=== PATIENT | male | born 1965 | race Two or more races ===

== ENCOUNTER 2019-04-13 21:47 | Emergency (ER) | payer OTHER ==
[~2019-04-13] VITALS: Ht 170.2 cm; Wt 77.1 kg
== END 2019-04-13 22:53 | disposition left against medical advice (07) ==
LOC: ED 21:47
DX: Z53.21 Procedure and treatment not carried out due to patient leaving prior to being seen by health care provider (principal)

== ENCOUNTER 2019-10-22 17:08 | Emergency (ER) | payer OTHER ==
[~2019-10-22] VITALS: Ht 170.2 cm; Wt 77.1 kg
--- OUTSIDE RECORDS SUMMARY | 2019-10-22 17:10 | XMS ---
PreManage Notification: TORO MENESES Security Judge'S Clerk Events 2 event(s) in the past 18 months Most recent security events: Elopement at [facility] 04/13/2019 21:48 - Other Details: PATIENT LWBS. Elopement at [facility] 04/13/2019 21:48 - Other Details: PATIENT LWBS. IRIS CREATED CRITERIA MET - Group Notification CARE PROVIDERS There are no care providers on record at this time. Rinku has no Care Guidelines for this patient. E.D. VISIT COUNT (12 MO.) 2 [facility]. TOTAL 2 NOTE: Visits indicate total known visits. ED/UCC VISIT TRACKING (12 MO.) 10/22/2019 17:08 [facility] [place] TYPE: Emergency COMPLAINT: - BACK PAIN 04/13/2019 21:48 [facility] [place] TYPE: Emergency COMPLAINT: - LT FOOT LACERATION - LEFT WITHOUT BEING SEEN DIAGNOSES: - Procedure and treatment not carried out due to patient leavin INPATIENT VISIT TRACKING (12 MO.) No inpatient visits to display in this time frame [id number]
[2019-10-22] MEDS ORDERED: LISINOPRIL20 MG PO (18:27)
[2019-10-22] MEDS ORDERED: VALIUM10 MG PO (20:06)
== END 2019-10-22 20:20 | disposition home or self-care (01) ==
LOC: ED 17:08
DX: S39.012A Strain of muscle, fascia and tendon of lower back, initial encounter (principal); M54.42 Lumbago with sciatica, left side; I10 Essential (primary) hypertension; F17.200 Nicotine dependence, unspecified, uncomplicated; Z79.899 Other long term (current) drug therapy; X50.0XXA Overexertion from strenuous movement or load, initial encounter
CPT/HCPCS: 96372; 99283; J3360

== ENCOUNTER 2021-03-11 14:03 | Inpatient (IN) | payer OTHER ==
[~2021-03-11] VITALS: Ht 170.2 cm; Wt 64.5 kg
[~2021-03-11 14:03] MED LIST: LISINOPRIL20 MG PO; VALIUM10 MG PO
--- OUTSIDE RECORDS SUMMARY | 2021-03-11 14:10 | XMS ---
PreManage Notification: TORO MENESES Security Gastroenterology Nurse Practitioner Events No recent Security Events currently on file CRITERIA MET - Group Notification CARE PROVIDERS SHANDA CORTEZ [facility] 10/24/2019-Current PHONE: Unknown Rinku has no Care Guidelines for this patient. [place] VISIT COUNT (12 MO.) 1 [facility] TOTAL 1 NOTE: Visits indicate total known visits. ED/UCC VISIT TRACKING (12 MO.) 03/11/2021 14:03 [facility] [place] TYPE: Emergency COMPLAINT: - POSS STROKE INPATIENT VISIT TRACKING (12 MO.) No inpatient visits to display in this time frame [id number]
--- NOTE | 2021-03-11 17:20 | NUR ---
REPORT RECEIVED FROM TAJ BLACK. AWAITING PTS ARRIVAL TO UNIT.
--- NOTE | 2021-03-11 17:45 | NUR ---
PT ARRIVED FROM ER. PT TRANSFERED SELF TO BED WITH STAND BY ASSIST. PT DENIES PAIN AND NAUSEA. PT DRESSED IN GOWN, REMOVES HIS OWN PANTS. SCRATCHES NOTED OVER PTS ARMS, LEGS AND UPPER CHEST. PT REPOTS "I GET ITCHY AND SCRATCH IT SOMETIMES" SAYING THIS IS WHAT HAS CAUSED THESE SCRATCH CROOK. PT RPEORTS ITCHING STARTED "A FEW MONTHS AGO." PT DENIES FEELINGS IF ITCHYNESS AT THIS TIME. PT DENIES FEELINGS OF ITCHING AT THIS TIME. PT DENIES NAUSEA. REPORTS MILD "FEELING SHAKY." NO TREMORS SEEN, PT REPORTS HE CAN FEEL THEM. PT ALERT AND ORIENTED AND INTERACTING APPROPRIATLY. PT REPORTS MILD ANXIETY "WITH ALL THIS." PT DENIES HEADACHES. CIWA SCORE OF 3. LUNG SOUNDS CLEAR. HEART TONES REGULAR. PT DENIES FEELINS OF CONSTIPATION REPORTING LAST BOWEL MOVEMENT WAS YESTERDAY. PT CALLS HIS TO UPDATE HER ON PLAN OF CARE AND HOSPITAL STAY. MEDICATIONS GIVEN, IV FLUIDS STARTED. PT WATCHING TV. NO ADDITIONAL REQUESTS OR COMPLAINTS. CALL LIGHT WITHIN REACH. BED RAILS UP.
--- NOTE | 2021-03-11 18:32 | NUR ---
THIS RN TO ROOM TO CHECK ON PT. PT RESTING IN BED WATCHING TV. APPLE JUICE PROVIDED PER PT REQUEST. VITAL SIGNS REAMIN STABLE. PT CONTINUES TO DENY FEELINTS OF [place], ITCHING, HEADACHES. ENDORSES MINOR "SHAKYNESS" AND ANXIETY. NO ADDITIONAL REQUESTS OR COMPLAINTS AT THIS TIME. CALL LIGHT WITHIN REACH. BED RAILS UP.
--- NOTE | 2021-03-11 18:53 | NUR ---
PTS CELL PHONE DELIVERED TO ROOM. PT REMAINS ALERT AND ORIENTED. DENIES NAUSE, HEADACHE, OR INCREASE IN TREMORS OR ANXIETY. PT NOTED TO HAVE VOIDED 650 OF CLEAR YELLOW URINE INTO URINAL. PT DNEIES ADDITIONAL REQUESTS OR COMPLAINTS AT THIS TIME. CALL LIGHT WITHIN REACH. BED RAILS UP.
--- NOTE | 2021-03-11 20:17 | NUR ---
REPORT RECEIVED FROM NANCY VANG. IN TO CHECK ON PT, PT IS RESTING IN BED. ASSESSMENT DONE. PT DENIES NEEDS/PAIN. DISCUSSED ETOH WITHDRAWAL AND S/SX WITH HIM AND PLAN OF CARE FOR THE NIGHT. REQUESTS A SNACK. CALL LIGHT AND URINAL IN REACH AND HE STATES HE WILL NOT GET UP ALONE.
--- NOTE | 2021-03-11 22:08 | NUR ---
IN TO CHECK ON PT, HE AWAKENS AND HAS URGENT NEED TO USE BR, UP TO BR TO VOID AND THEN BACK TO BED. SLIGHTLY IMPULSIVE BUT ONCE BACK IN BED HE IS CALM AND GOES BACK TO SLEEP. BED ALARM ON.
--- NOTE | 2021-03-12 02:09 | NUR ---
IN TO GIVE SCHEDULED ATIVAN, PT AWAKENS EASILY, DENIES NEEDS. BED ALARM ON AND CALL LIGHT IN REACH. HR 70'S.
--- NOTE | 2021-03-12 03:17 | NUR ---
FLORAL ASSOCIATE REPORTS THAT PT CALLED TO STATE THAT HE HAD SPILLED HIS URINAL IN BED, BED CHANGE DONE, BED ALARM ON.
--- NOTE | 2021-03-12 05:00 | NUR ---
IN TO HELP PT UP TO BR, SOMEWHAT UNSTEADY ON HIS FEET, SBA. PT ALSO STATED SOME THINGS THAT DID NOT SEEM TO MAKE SENSE "NEXT TIME ILL USE MY CAT", AND SEEMED A BIT CONFUSED AND SHAKY. BACK TO BED WITH BED ALARM ON.
--- NOTE | 2021-03-12 06:19 | NUR ---
PT UP TO BR TO HAVE LOOSE STOOL, SBA, PT AGAIN SLIGHTLY TIPSY ALTHOUGH THIS TIME HE DOES NOT SEEM CONFUSED, A LITTLE SLOW WITH RESPONSES. DOES REPORT SLIGHT NAUSEA AND TREMORS. WILL DO ANOTHER CIWA AND GIVE BERNABE ATIVAN.
--- NOTE | 2021-03-12 06:21 | NUR ---
CIWA 4
--- NOTE | 2021-03-12 07:35 | NUR ---
REPORT RECEIVED FROM TAJ WU. PT RESTINGIN BED TALKING WITH FAMILY ON PHONE. PT DENIES NAUSEA, HEADACHES, VISUAL OR AUDITORY DISTURBANCES, OR ITCHING. PT REPORTS MILD ANXIETY AND MILD "FEELING SHAKEY." CIWA SCORE OF 2. PT DENIES PAIN. NO ADDITIONAL REQUESTS OR COMPLAINTS. AT THIS TIME. CALL LIGHT WITHIN REACH. BED RAILS UP. PT CONTINUES TALKING TO FAMILY ON PHONE.
--- NOTE | 2021-03-12 08:37 | NUR ---
MORNING ASSESSMENT AND MEDICATION DUE. PT UP TO EDGE OF BED WORKING WITH NEUROSURGERY PHYSICIAN FOR DEPENDS AND LINEN CHANGE. PT REPORTS HE WAS TRYING TO USE THE URINAL AND MISSED THEREFORE WETTING THE BED. STAND BY ASSIST UP TO CHAIR. PT DENIES PAIN AND NAUSEA AT THIS TIME. CIWA SCORE REMAINS AT 2 FOR MINOR TREMORS AND MINOR ANXIET PER PT. PT DENIES HEADACHES. NO VISIBLE TREMORS SEEN BY THIS RN. PT DENIES AUDITORY OR VISUAL HALLUCINATIONS. PT ALERT AND ORIENTED TO ALL. HEART TONE REGULAR HEART RATE 60-70'S. SCRACTCHES OVER ARMS, LEGS AND CHEST REMAIN UNCHANGED. PT DENIES ITCHING AT THIS TIME. PT TOLERATING CLEAR LIQUID DIET WITH GOOD INTAKE. PT REMAINS UP TO CHAIR AT THIS TIME, WATCHING TV. CHAIR ALARM PLACED AND ACTIVATED. PT DENIES ADDITIOANL REQUESTS OR COMPLAINTS. CALL LIGHT WITHIN REACH.
--- NOTE | 2021-03-12 08:56 | NUR ---
PATIENT FOUND AT SIDE OF BED USING URINAL, UNMEASRUED AMOUNT ON PATIENT AND FLOOR WELL. PATIENT CLEANED UP, LINENS AND GOWN REPLACED. PATIENT NOW UP IN CHAIR, CHAIR ALARM ON FOR SAFETY. CLEAR TRAY ORDERED AND FRESH ICE WATER PROVIDED. TAJ CRUZ IN ROOM WELL.
--- NOTE | 2021-03-12 09:20 | NUR ---
PATIENT IN CHAIR FOR BREAKFAST, PATIENT HAS SLIGHT TREMORS WHILE EATING/DRINKING, BUT IS ABLE TO FEED HIMSELF. CHAIR ALARM ON FOR SAFETY. DR MURGUIA TO SEE PATIENT AT THIS TIME
--- NOTE | 2021-03-12 09:31 | NUR ---
MED REC COMPLETED BY PHARMACY
--- NOTE | 2021-03-12 09:44 | NUR ---
THIS RN TO ROOM TO CHECK ON PT. DAVID RN REPORTS PT WAS FOUND WITH JELLOW ALL OVER HIS SHIRT. PT'S GOWN CHANGED. PT REPORTS HE "THREW IT UP." PT CONTINUES TO DENY NAUSEA STATING "THAT JUST HAPPENS WHEN I EAT JELLOW SOMETIMES." EDUCATION DONE WITH PT REGARDING IMPROTANCE OF REPORTING NAUSEA. HEART RATE REMAINS STABLE 60-70'S. PT REPORTS "JUST A LITTLE" ANXIETY. PT ABLE TO ADD NUMBERS WITH OUT ISSUE. PT DENIES TACTILE OR VISUAL DISTURBANCES WELL HEADACHE AND ITCHING. PT REPORTS MILD ANXIETY. MILD TREMORS NOTED, MOSTLY WHEN PT IS TRYING TO LIFT WATER TO MOUTH. CIWA SCORE OF 6. MEDICATION GIVEN (SEE MAR). PT DENIES ADDITIONAL REQUESTS OR COMPLAINTS. REMAINS UP TO CHAIR, TALKIGN ON PHONE AND WATCHING TV. CALL LIGHT [employer] REACH. CHAIR ALARM ON.
--- NOTE | 2021-03-12 09:52 | NUR ---
CHAIR ALARM ON. PT TRYING TO GET UP. PT REPORTS HE WOULD LIKE TO GET BACK TO BED. 1 PERSON ASSIST BACK TO BED. PT NOTED TO BE UNSTEADY ON FEET AND LOOSING BALANCE AT TIMES. HEAD OF BED ELEVATED TO 30 DEGREES. BED RAILS UP. BED ALARM ON. PT DENIES ADDIITONAL REQUESTS OR COMPLAINTS. CALL LIGHT [employer] CONROY.
--- NOTE | 2021-03-12 09:59 | NUR ---
MISSED LABS FROM LAST NIGHT REVIEWED WITH DR JACKSON. DR. JACKSON STATES OK TO CANCEL ORDER AT THIS TIME MORNING LABS WERE ALREADY REVIEWED. ORDER CANELED.
--- NOTE | 2021-03-12 10:21 | NUR ---
THIS RN TO ROOM TO CHECK ON PT. PT RESTING ON RIGHT SIDED WITH EYES CLOSED, RESPIRATIONS EVEN AND UNLAOBRED. BED RAILS UP. CALL LIGHT WITHIN REACH. BED ALARM ON. PT ALLOWED TO REST.
--- NOTE | 2021-03-12 10:52 | NUR ---
THIS RN TO ROOM TO CHECK ON PT. PT RESTING ON RIGHT SIDE WITH EYES CLOSED, HEAD OF BED ELEVATED TO 20 DEGREES. VITAL SIGNS STABLE. CIWA OF 0/10 AT THIS TIME. RESPIRATIONS EVEN AND UNLABORED. BED RAILS UP. CALL LIGHT WITHIN REACH. BED ALARM ON.
--- NOTE | 2021-03-12 11:21 | NUR ---
PTS , MARÍA, TO BEDSIDE TO VISIT WITH PT. MARÍA UPDATED ON PT STATUS AND PLAN OF CARE. MARÍA VERBALIZES UNDERSTANDING AND STATES HER QUESTIONS HAVE BEEN ANSWERED. PT CONTINUES RESTING ON RIGHT SIDE, MILD SNORNING NOTED. NO ADDITIONAL REQUESTS OR COMPLAINTS. CALL LIGHT WITHIN REACH. BED RAILS UP. BED ALARM ON.
--- NOTE | 2021-03-12 12:12 | NUR ---
NOON ASSESSMENT DUE. CHAIR ALARM SOUNDING. PTS REPORTS "HE JUST POPED RIGHT UP OUT OF BED AND HAD AND ACCIDENT." LINENS NOTED TO BE WET WITH URINE. PT TRYING TO GET UP OUT OF BED. 1 PERSON ASSIST TO USE URINAL. SEBASTIÁN CARE DONE. DEPENDS, GOWN AND LINENS CHANGED. PT UP TO CHAIR. PT DENIES HEADACHE, PAIN, NAUSEA, AGITATION, ITCHING, VISUAL OR AUDITORY HALLUCINATIONS. PT ORIENTED TO ALL AND ABLE TO ADD NUMBERS. CIWA SCORE OF 3 FOR MINOR FELT TREMORS, AGITTAION NOTED BY THIS RN AND AND MILD ANXIETY THAT "IS SO MUCH BETTER THAN YESTERDAY." NEW IV FLUID BAG HUNG, IV'S REMAIN WNL, NO S/S OF PHLEBITIS NOTED. PT OREITNED TO ALL. PT FIGITING IN CHAIR, AND FREQUENTLY WANTS UP AND DOWN. PT UNSTAEDY ON FEET, LEANIGN FOWARD AND SWAING WITH MOVEMENT. LUNG SOUDNS REMAIN CLEAR. HEART TONES REGULAR WITH HR OF 60-70'S AT REST. WHILE UP TO CHAIR PT REPORTS NEED TO HAVE BOWEL MOVEMENT. 1 PERSON ASSIST UP TO BEDSIDE COMODE. SOFT STOOL NOTED ALREADY IN DEPENDS, PT HAS LOOSE/SOFT BROWN BOWEL MOVEMENT. SEBASTIÁN CARE DONE, DEPENDS CHANGED. PT BACK TO BED. NO ADDITIONAL REQUESTS OR COMPLAINTS. CALL LIGHT WITHIN REACH. BED RAILS UP. BED ALARM ON.
--- NOTE | 2021-03-12 13:09 | NUR ---
THIS RN TO ROOM TO CHECK ON PT. PT RESTING ON RIGHT SIDE WITH EYES CLOSED. RESPIRATIONS EVEN AND UNALBORED. BED RAILS UP. CALL LIGHT [employer] REACH. PT ALLOWED TO REST. BED ALARM ON.
--- NOTE | 2021-03-12 13:41 | NUR ---
MEDICATION DUE. THIS RN TO ROOM. PT RESTING IN BED ON RIGHT SIDE. RESPRIATIONS EVEN AND UNLABORED. PT AWAKENS TO VOICE AND LIGHT TOUCH. 1 PERSON ASSIST UP TO BEDSIDE TO VOID. PT VOIDS 475ML CLEAR YELLOW URINE WITHOUT ISSUE. 1 PERSON ASSIST BACK TO BED. PT DENEIS ANXIETY, HEADACHES, AGITATION, NAUSEA, ITCHING, AUDITORY OR VISUAL DISTURBANCES. PT IS ABLE TO ADD NUBMERS AND IS ORIENTED TO ALL. PT REPORTS MILD FEELINGS OF TREMORS. CIWA SCORE OF 1. SCHEDULED MEDICATION GIVEN (SEE MAR). PT WATCHING TV. NO ADDITIONAL REQUESTS OR COMPLAINTS. CALL LIGHT WITHIN REACH. BED ALARM ON. BED RAILS UP.
--- NOTE | 2021-03-12 14:10 | NUR ---
PT ASLEEP, LAYING ON RIGHT SIDE. WILL CHECK BACK
--- NOTE | 2021-03-12 15:11 | NUR ---
THIS RN TO ROOM TO CHECK ON PT. PT RESTING IN BED ON BACK WITH EYES CLOSED. HEAD OF BED ELEVATED TO 15 DEGREES. RESPIRATIONS EVEN AND UNLABORED. PT AWAKENS TO VOICE AND LIGHT TOUCH. PT DENIES HEACHES, NAUSEA, ANXIETY, VISUAL OR AUDITORY DISTURBANCES. PT NOTED TO SCRATCH SKIN OF LEGS AND CHEST AT TIMES. PT REPORTS HE CAN STILL FEEL "A LITTLE" TREMOR IN HIS HANDS. PT STATES "IT FEELS PRETTY GOOD, I'M NORMALLY SHAKING A LOT." PT UP TO STAND TO TRY TO VOID, UNSUCESSFUL. STAND BY ASSIT BACK TO BED. PT PLAYING ON PHONE. ACTIONS NOTED TO BE SLOWED, PT REMAINS ORIENTED TO ALL. PT DENIES ADDITIONAL REQUESTS OR COMPLAINTS. CALL LIGHT WITHIN REACH. BED RAILS UP. BED ALARM ON.
--- NOTE | 2021-03-12 15:27 | NUR ---
PT HERE FOR ALCOHOL WITHDRAWL. PT UP TO CHAIR WITH 1 PERSON ASSIST THIS SHIFT. PT TOELRATING CLEAR LIQUID DIET. CIWA SCORES OF 0-6 SO FAR THIS SHIFT. SCHEDULED ATAVAN GIVEN. PT DROWSY FOR MUCH OF SHIFT. PT REMAINS ALERT AND ORIENTED THROUGHOUT SHIFT. PT DENIES PAIN THIS SHIFT, NO HEADACHES NOTED. PT DENIES NAUSEA BUT DID STATES HE "THREW UP" HIS JELLO THIS MORNING. PT VERBALIZES UNDERSTANDING OF PLAN OF CARE. LUNG SOUNDS CLEAR. HEART TONES REGULAR AND 60-70'S WITH NORMAL SINUS RHYTHEM THIS SHIFT. INCONTINANT EPISODES OF URINE AND STOOL NOTED THIS SHIFT. PT VOIDING QUANTITY SUFFICIENT. PT USES CALL LIGHT INTERMITTANTLY, BED/CHAIR ALARM FOR SAFETY.
--- NOTE | 2021-03-12 16:12 | NUR ---
AFTERNOON ASSESSMENT DUE. NEW ORDERS PLACED BY MD. THIS RN TO ROOM. PT RESTING WITH EYES CLOSED, AWAKENS TO VOICE. PT DENIES PAIN AND NAUSEA. IV SALINE LOCKED PER MD ORDER. ORTHOSTATIC VITAL SIGNS TAKEN, MINIMAL CHANGES NOTED WITH STANDING. PT CONTINUES TO BE UNSTEADY ON FEET, SLOW TO RESPOND, AND DROWSY AT TIMES. PT ENDOSES TREMORS. PT DENIES HEADACHES, NAUSEA, ITCHING, VISUAL OR AUDITORY HALLUCIATIONS, ANXIETY OR AGITATION. PT REPORTS "YESTERDAY I WAS REALLY ANXIOUS BUT NOT ANY MORE." PT ORIENTED TO ALL AND IS ABLE TO ADD NUMBERS. STRONG DORSI AND PLANTAR FLEXTION, AND STRONG DIGITAL SALES PLANNER STRENGTHS NOTED. PT ENCORUAGED TO GET UP TO VOID, DENIES NEED AT THIS TIME. PT REPORTS "I JUST FEEL WOOZY AND REALLY SLEEPY." EDUCATION DONE WITH PT REGARDING ATAVAN DOSE. PT STATES "IT FEELS REALLY GOOD, I HAVEN'T BEEN SLEEPING FOR A LONG TIME." PTS , MARÍA, ARRIVED BACK TO BEDSIDE, VISITING WITH PT. PT DENIES ADDITIONAL REQUESTS OR COMPLAINTS. CALL LIGHT WIHTIN REACH. BED RAILS UP. BED ALARM ON.
--- NOTE | 2021-03-12 16:49 | NUR ---
PT CALL LIGHT ON. PT REPORTS NEED TO VOID. PT UP TO STAND, CONTINUES TO BE UNSTEADY ON FEET. PT ASSISTED WITH DEPENDS. PT VOIDS 450ML CLEAR YELLOW URINE. SAMPLE COLLECTED AND SENT TO LAB. PT PERFORMS SELF SEBASTIÁN CARE. DEPENDS IN PLACE. 1 PERSON ASSIST BACK TO BED. PT VISITING WITH HIS . NO ADDIITONAL REQUESTS OR COMPLAINTS AT THIS TIME. CALL LIGHT WITHIN REACH. BED RAILS UP. BED ALARM ON.
--- NOTE | 2021-03-12 17:25 | NUR ---
DR. CRUZ TO THE FLOOR, UPDATED ON PT STATUS. VERBAL ORDERS TO ADVANCE PTS DIET TO REGULAR AND TRANSFER PT TO MED/KEMI. THIS RN TO ROOM TO UPDATE PT. PT RESTING IN BED TALKING WITH HIS . CIWA SCORE REMAINS 1/10 FOR MILD TREMORS. PT UPDATED, DINNER ORDER PLACED. MED/SURG CALLED, AWAITING ROOM ASSIGNMENT. NO ADDITIONAL REQUESTS OR COMPLAINTS. CALL LIGHT WIHTIN REACH. BED RAILS UP. BED ALARM ON.
--- NOTE | 2021-03-12 17:34 | NUR ---
PT CALL LIGHT ON. PT REQUESTS ASSISTANCE UP TO USE URINAL. STAND BY ASSIST UP TO USE URINAL. PT REMAINS UNSTEADY ON FEET. PT VOIDS 125ML CLEAR YELLOW URINE. 1 PERSON ASSIST BACK TO BED. PT DENIES ADDITIONAL REQUESTS OR COMPLAINTS. CALL LIGHT WITHIN REACH. BED RAILS UP. BED ALARM ON.
--- NOTE | 2021-03-12 18:06 | NUR ---
PT TRANSFERED TO MED/SURG ROOM 114 BY THIS RN. THIS RN CONTINUING CARE OF OF PT UNTIL SHIFT CHANGE. PT UP TO CHAIR FOR DINNER. VITAL SIGNS STABLE. CIWA SCORE OF 1 FOR ONGOING MINOR TREMORS. PT CONTINUES TO BE UNSTEADY ON FEET WITH TRANSFER TO CHAIR. WARM BLANKETS PROVIDED. CALL LIGHT WITHIN REACH. CHAIR ALARM ON.
--- NOTE | 2021-03-12 19:00 | NUR ---
THIS RN TO ROOM TO CHECK ON PT. PT READY TO GET BACK TO BED. AT 50% OF DINNER. CONTINUES TO DENY PAIN AND NAUSEA. STAND BY ASSIST BACK TO BED. PT WOBBLES ON FEET AT TIMES. PT DENIES ADDITIONAL REQUESTS OR COMPLAINTS. CALL LIGHT WITHIN REACH. BED RAILS UP. BED ALARM ON.
--- NOTE | 2021-03-12 19:10 | NUR ---
SHIFT REPORT RECEIVED FROM NANCY VANG. PT RESTING IN BED. NO NEEDS AT THIS TIME.
--- NOTE | 2021-03-12 20:00 | NUR ---
PT USED CALL LIGHT TO REQUEST ASSISTANCE TO THE BATHROOM, ONE PERSON ASSIST TO BATHROOM, PT HAS UNSTEADY GAIT, SWAYED OFF BALANCE, BRISK PACE, ATTEMPT TO EXPLAIN NEED TO SLOW HIS PACE FOR SAFETY, PT SAT TO TOILET. THIS RN OBTAINED FWW FOR PT, HIS AMBULATION BACK TO BED WAS MORE STEADY WITH FWW, NO SWAYING, WITH SLOWER PACE. PT BACK TO BED, HE HAS NO FURTHER NEEDS AT THIS TIME, CALL LIGHT IN REACH, BED ALARM ON.
--- NOTE | 2021-03-12 20:26 | NUR ---
ASSESSMENT, VS AND I&O COMPLETED. CIWA 2 FOR MILD TREMORS. GCS 15, A&O X4. IVs WNL, CDI, FLUSHED WELL. IV FLUIDS INFUSING PER ORDER. LUNGS CLEAR, HEART TONES REGULAR. ABD SOFT, NONTENDER, BOWEL TONES ACTIVE. CMS INTACT. CIWA SCALE EDUCATION PROVIDED. SAFETY/CALL LIGHT EDUCATION PROVIDED. NO OTHER NEEDS. CALL LIGHT IN REACH.
--- NOTE | 2021-03-13 | NUR ---
PT RESTING IN BED, IV FLUIDS INFUSING PER ORDER. NO NEEDS AT THIS TIME. CALL LIGHT IN REACH.
--- NOTE | 2021-03-13 01:34 | NUR ---
PT CALLS TO USE BR. UP TO BR, SBA WITH FWW, BACK TO BED. CIWA 2. NO OTHER NEEDS. CALL LIGHT IN REACH.
--- NOTE | 2021-03-13 03:27 | NUR ---
PT RESTING IN BED, RR EVEN, UNLABORED. CALL LIGHT IN REACH.
--- NOTE | 2021-03-13 04:30 | NUR ---
IN TO GET VITALS, URINAL EMPTIED, TRASH EMPTIED, NO FURTHER NEEDS
--- NOTE | 2021-03-13 05:37 | NUR ---
PT RESTING IN BED, CALL LIGHT IN REACH.
--- NOTE | 2021-03-13 08:00 | NUR ---
Shift report received from TAJ Fink, pt SBA to bathroom, now sitting up in chair w/ call light in reach, no other needs at this time
--- NOTE | 2021-03-13 10:00 | NUR ---
Pt sitting up in chair w/ call light in reach, morning assesment complete and scheduled meds given per provider orders. Pt denies any other needs at this time
--- NOTE | 2021-03-13 12:06 | NUR ---
Pt is sitting up in chair safely w/ call light in reach, pt is anxious to go home but understands the importance of staying until the providers discharges him. Denies any needs at this time
--- NOTE | 2021-03-13 13:56 | NUR ---
Patient is in room, in chair watching television, IV is running, intact, no signs, symptoms of infiltration. Patient states that his care has been "excellent" while he has been in the hospital. He would like to discharge and says that he "thinks" he is going home today. He states that "I will be going home to my woman's house, because she wants me to. I have my own house but I will be going to her house for now." Patient denies dificulty with being able to have medications picked up. States he has resoureces for medications that need picked up and can pay for medications as needed." He denies any questions or concerns at this time.
--- NOTE | 2021-03-13 14:00 | NUR ---
pt sitting up in chair watching tv, call light w/ in reach. Pt denies any needs at this time.
--- NOTE | 2021-03-13 15:31 | NUR ---
Patient is wondering when the doctor will come to see him. Patient said he didn't think he would be staying for very long. Patient's BP was 158/100 on right arm. MAP was 115. RN will be notified.
--- NOTE | 2021-03-13 16:09 | NUR ---
Pt sitting up in chair w/ call light in reach, watching tv. Pt anxious to go home, pt updated on plan of care.
--- NOTE | 2021-03-13 17:57 | NUR ---
Pt resting in bed safely w/ call light in reach, SO in room. pt requested chicken noodle soup, order called down to kitchen
--- NOTE | 2021-03-13 19:22 | NUR ---
SHIFT REPORT RECEIVED FROM MARIA ELENA VANG. PT RESTING IN BED. NO NEEDS AT THIS TIME. CALL LIGHT IN REACH.
--- NOTE | 2021-03-13 19:23 | NUR ---
Patient is resting with call light in reach.
--- NOTE | 2021-03-13 20:20 | NUR ---
IN TO GET VITALS, ROOM TIDIED, PT REACENTLY VOIDED CLOSE TO SHIFT CHANGE, WILL BE DUE TO VOID
--- NOTE | 2021-03-13 20:26 | NUR ---
ASSESSMENT, VS AND I&O COMPLETED. GCS 15, A&O X4. LUNGS CLEAR, HEART TONES REGULAR, ABD SOFT, NONTENDER, BOWEL TONES ACTIVE. CMS INTACT. IVs WNL, CDI, FLUSHED WELL. IV FLUIDS INFUSING PER ORDER, SCHEDULED MED PROVIDED. CIWA 1 FOR TREMORS. NO OTHER NEEDS AT THIS TIME. CALL LIGHTIN REACH.
--- NOTE | 2021-03-13 22:30 | NUR ---
IN TO CHECK ON PT FOR URINE OUTPUT, STILL DUE
--- NOTE | 2021-03-13 22:50 | NUR ---
PT UP TO VOID WITH URINAL AT BEDSIDE, BACK TO BED, ALARM SET, NO FURTHER NEEDS
--- NOTE | 2021-03-14 01:48 | NUR ---
PT RESTING IN BED. IV FLUIDS INFUSING PER ORDER. CALL LIGHT IN REACH.
--- NOTE | 2021-03-14 04:00 | NUR ---
PT RESTING IN BED. CALL LIGHT IN REACH.
--- NOTE | 2021-03-14 04:58 | NUR ---
ASSESSMENT, VS AND I&O COMPLETED. IV FLUIDS STOPPED PER ORDER. GCS 15, A&O X4. PT DENIES PAIN AND NAUSEA. IVs WNL. NO OTHER NEEDS. CALL LIGHT IN REACH.
--- NOTE | 2021-03-14 08:00 | NUR ---
Shift report received from TAJ Fink, pt sitting up in bed safely w/ call light in reach, no needs at this time
--- NOTE | 2021-03-14 10:05 | NUR ---
PT SITTING UP IN BED WATCHING TV, CALL LIGHT W/ IN REACH, MORNING ASSESMENT COMPLETE AND SCHEDULED MEDS GIVEN PER PROVIDER ORDER. PT DENIES ANY NEEDS AT THIS TIME
[2021-03-14] MEDS ORDERED: SODIUM CHLORIDE1 GM PO (11:31)
--- NOTE | 2021-03-14 12:00 | NUR ---
PT SITTING UP IN CHAIR W/ CALL LIGHT IN REACH, WATCHING TV. NO NEEDS AT THIS TIME.
--- NOTE | 2021-03-14 13:00 | NUR ---
VERBAL AND WRITTEN DISCHARGE INSTRUCTIONS GIVEN, PT VERBALIZES UNDERSTANDING. [facility]USH ESCORTED PT TO FRONT LOBBY VIA W/C, VSS ON RA
--- NOTE | 2021-03-14 14:54 | EKG ---
[facility] [address] [place], [place] [address] Signed Sinus rhythm Poor data quality No previous ECGs available Confirmed by CURRY CRUZ MD ([id number]) on 03/14/2021 2:54:19 PM Electronically Signed By: CURRY CRUZ MD 03/14/21 1454 PATIENT NAME: TORO MENESES KAREY Electrocardiogram DATE OF : 67 PHYSICIAN: CURRY CRUZ MD REPORT #: [id number] REPORT IS CONFIDENTIAL AND NOT TO BE RELEASED WITHOUT AUTHORIZATION
== END 2021-03-14 13:00 | disposition home or self-care (01) | DRG 312 ==
LOC: ED 14:03 → CCU 17:32 → MS 03-12 18:01
PROVIDERS: ADMIT Internal Medicine; ATTEND Internal Medicine
PROC: HZ2ZZZZ Detoxification Services for Substance Abuse Treatment (ICD-10-PCS; principal; 2021-03-11)
DX: I95.1 Orthostatic hypotension (principal); E87.1 Hypo-osmolality and hyponatremia; Z20.822 Contact with and (suspected) exposure to COVID-19; E86.0 Dehydration; F10.20 Alcohol dependence, uncomplicated; K70.10 Alcoholic hepatitis without ascites; I10 Essential (primary) hypertension; F17.210 Nicotine dependence, cigarettes, uncomplicated; Z79.899 Other long term (current) drug therapy
CPT/HCPCS: 76705; 80048; 80053; 80076; 83735; 83930; 83935; 84100; 84484; 84550; 85007; 85025; 85610; 93005; 93010; 99285-25; C9113; C9803; G0480; J1650; J1953; J3411; J3480; J7030; J7131; Q0177; U0003

== ENCOUNTER 2022-01-09 19:07 | Emergency (ER) | payer BC, OTHER ==
[~2022-01-09] VITALS: Ht 170.2 cm; Wt 68.0 kg
[~2022-01-09 19:07] MED LIST changes: +SODIUM CHLORIDE1 GM PO
--- OUTSIDE RECORDS SUMMARY | 2022-01-09 19:10 | XMS ---
PreManage Notification: TORO MENESES Security Community Cultural Development Officer Events No recent Security Events currently on file CRITERIA MET - Group Notification CARE PROVIDERS SHANDA CORTEZ [facility] 10/24/2019-[facility] PHONE: [phone] [facility] 03/12/2021-[facility] PHONE: [phone] Rinku has no Care Guidelines for this patient. Care History Medical/Surgical 03/12/2021 [facility] - PATIENT IS [facility] ELIGIBLE, \T\middot;\T\nbsp; PLEASE REFER PATIENT TO [facility] FOR NON EMERGENT MEDICAL NEEDS. \T\middot;\T\nbsp; [facility] CAN SEE PATIENTS SAME DAY FOR APTS IF PATIENT CALLS FIRST THING IN THE MORNING. E.D. VISIT COUNT (12 MO.) 2 [facility] TOTAL 2 NOTE: Visits indicate total known visits. ED/UCC VISIT TRACKING (12 MO.) 01/09/2022 19:07 [facility] TYPE: Emergency COMPLAINT: - UNRESPONSIVE 03/11/2021 14:03 [facility] TYPE: Emergency COMPLAINT: - POSS STROKE INPATIENT VISIT TRACKING (12 MO.) 03/11/2021 17:[address] [facility] TYPE: Medical Surgical COMPLAINT: - ALCOHOL WITHDRAWAL SEZIURE DIAGNOSES: - Alcohol dependence, uncomplicated - Hypo-osmolality and hyponatremia - Nicotine dependence, cigarettes, uncomplicated - Orthostatic hypotension - Orthostatic hypotension - Alcohol dependence with withdrawal, unspecified - Other retirement (current) drug therapy - Alcoholic hepatitis without ascites - Other retirement (current) drug therapy - Alcohol dependence, uncomplicated - Alcoholic hepatitis without ascites - Dehydration - Essential (primary) hypertension - Contact with and (suspected) exposure to COVID-19 - Essential (primary) hypertension - Nicotine dependence, cigarettes, uncomplicated - Dehydration - Hypo-osmolality and hyponatremia [email or web address]
[2022-01-09] MEDS ORDERED: NARCAN4 MG NAS (20:58)
== END 2022-01-09 21:40 | disposition home or self-care (01) ==
LOC: ED 19:07
DX: T40.411A Poisoning by fentanyl or fentanyl analogs, accidental (unintentional), initial encounter (principal); T51.91XA Toxic effect of unspecified alcohol, accidental (unintentional), initial encounter; I10 Essential (primary) hypertension; F17.200 Nicotine dependence, unspecified, uncomplicated; Z79.899 Other long term (current) drug therapy
CPT/HCPCS: 36415; 80053; 83690; 85025; 96374; 99284-25; G0480; J2310; J7030